=== PATIENT | male | born 1945 | race Caucasian/White ===

== ENCOUNTER 2017-12-17 05:22 | Day surgery (SDC) | payer OTHER ==
[~2017-12-17] VITALS: Ht 182.9 cm; Wt 124.7 kg
--- NOTE | ~2017-12-17 | O ---
[facility] [place] [address] OPERATIVE REPORT Name: MARCELLO SEGURA Room #: DEP [facility]#: [id number] Admission: 12/17/17 Attend Phys: Matteo Marcano MD Discharge: 12/17/17 Date of : 47 Report #: [id number] THIS REPORT FOR: //name// CC: Trisha Patten [facility] physician/PCP Matteo Marcano DATE OF SERVICE: 12/17/2017 PREOPERATIVE DIAGNOSIS: Tumor of right lower lid and cheek. POSTOPERATIVE DIAGNOSIS: Tumor of right lower lid and cheek, basal cell carcinoma. PROCEDURE: Excision of tumor of right lower lid and cheek with frozen sections and myocutaneous flap repair of defect. SURGEON: Matteo Marcano MD SHANK TAPER: None. ANESTHESIA: MAC. COMPLICATIONS: None. INDICATIONS FOR SURGERY: This pleasant 72-year-old gentleman has a nodular ulcerative lesion in his right lower lid that appears to be a basal cell carcinoma. He presents today for excision of the lesion with frozen sections and subsequent repair of that defect. Informed consent was obtained to include, but not limited to the potential risk for loss of vision, bleeding, infection, failure to improve the problem, and the potential need for further surgery or treatment. DESCRIPTION OF PROCEDURE: The patient was taken to the operating room where 2% Xylocaine with epinephrine mixed with equal parts of 0.75% Marcaine with Wydase was administered transcutaneously to the right lower lid, the right cheek and the right sabianist. The patient was subsequently prepped and aped in the usual sterile fashion. A fine tip skin marking pen was then utilized to outline the lesion including 1-2 mm of normal appearing tissue. The incisions were then made with a #15 blade. The deeper dissection was accomplished with a Radhika scissor. The specimen was then oriented on a drawing for the waiting pathologist. The pathologist snap froze that specimen and found that the lesion was indeed a basal cell carcinoma and that the margins were clear. A myocutaneous flap was then developed. Hemostasis was then re-achieved. The [address] [address] OPERATIVE REPORT Name: MARCELLO SEGURA Room #: DEP [facility] M.R.#: [id number] Admission: 12/17/17 Attend Phys: Matteo Marcano MD Discharge: 12/17/17 Date of : 47 Report #: [id number] flap was then rotated into position and secured with multiple interrupted 6-0 plain gut sutures. Erythromycin ophthalmic ointment was placed on the incision and the patient subsequently transported to the recovery area having tolerated the procedures well with no anesthetic or operative complications being noted. <ELECTRONICALLY SIGNED> By: Matteo Marcano MD 12/28/17 0616 [id number] 1749 Matteo Marcano MD /nt
--- NOTE | ~2017-12-17 | S ---
[facility] [place] [address] SURGICAL PATH RPT PROCEDURE Name: MARCELLO SEGURA Room #: DEP [facility] M.R.#: [id number] Admission: 12/17/17 Date of : 47 Discharge: 12/17/17 Report #: [id number] Path Case #: [id number] PATHOLOGY REPORT COLLECTION DATE: 12/17/2017 RECEIVED DATE: 12/17/2017 SUBMITTING PHYS: Dr. Matteo Marcano OTHER PHYS: SPECIMEN(S) RECEIVED: A.R lower lid/cheek * * * * * * * * * * * * FINAL DIAGNOSIS: Skin, lesion right lower lid/cheek, excision: - BASAL CELL CARCINOMA. - Margins of resection free of malignancy. (IUV:mgr; 12/18/2017) PATHOLOGIST: Ruby Wilson M.D. REPORT ELECTRONICALLY SIGNED BY: Ruby Wilson M.D. DATE/TIME: 12/18/2017 13:56 * * * * * * * * * * * * GROSS PATHOLOGY: The specimen is received fresh from the OR labeled with the patient's name and "lesion right lower lid/cheek" consists of an oriented ellipse of skin measuring approximately 1.5 x 0.8 x 0.3 cm. The specimen is oriented as medial, inferior, lateral and superior. These are assigned 12:00, 3:00, 6:00 and 9:00, respectively. The 12 to 3 to 6:00 is inked black including the deep margin, the 6 to 9:00 is inked blue (lateral to superior), and the 9 to 12:00 is inked green (superior to medial). At this point the specimen is serially sectioned into five pieces and submitted for frozen section entirely as FSA1, subsequently submitted for permanent sections as A1. FROZEN SECTION DIAGNOSIS: (Javy Wilson M.D.) FSA1. Skin, lesion right lower lid, excision: - BASAL CELL CARCINOMA. - MARGIN FREE OF INVASIVE CARCINOMA. These findings are discussed with Dr. Matteo Marcano in OR 6 at [facility] and a written report is placed in the patient's chart. (IUV:db; 12/17/2017) Testing performed by [facility] at [address] [address] SURGICAL PATH RPT PROCEDURE Name: IMELDAMARCELLO Mario [facility] [id number] Admission: 12/17/17 Date of : 47 Discharge: 12/17/17 Report #: [id number] Path Case #: [id number] [facility] [place] [address], [place] [address] CLINICAL HISTORY: History of excision of a lesion of the eye. INITIAL CPT CODE(S): A; 14399, 65907 Professional services performed by [facility] at [place] [address] [address] [place], [place] [address] Technical services performed by [facility] at [address] [place] [address]., [address], [place] [address]. [facility] [address] [address] PHONE: [phone] DIRECTOR: Andrew Alanis M.D. * * * END OF REPORT * * *
[~2017-12-17 05:22] MED LIST: ASPIRIN325 PO; CARDURA4 MG PO; CENTRUM SILVER1 EAC2 PO; FISH OIL 1,001000 M2 PO; HYDROCHLOROTHIA25 M2 PO; PRINIVIL40 MG PO; SIMVASTATIN40 MG PO
[2017-12-17 15:02] LABS: CALCIUM 9.5 mg/dL (8.5-10.1); CREATININE 1.6 mg/dL (0.7-1.3); POTASSIUM 3.7 mmol/L (3.5-5.1)
[2017-12-17 15:11] VITALS: BP 136/64
== END 2017-12-17 16:30 | disposition home or self-care (01) ==
LOC: TBA 05:22 → OR 05:22 → TBA 05:23 → OR 07:19
PROVIDERS: Ophthalmology
DX: C44.112 Basal cell carcinoma of skin of right eyelid, including canthus (principal); I10 Essential (primary) hypertension; E78.00 Pure hypercholesterolemia, unspecified; Z87.891 Personal history of nicotine dependence; Z98.890 Other specified postprocedural states; Z88.0 Allergy status to penicillin; Z79.899 Other long term (current) drug therapy
CPT/HCPCS: 50010; 50101; 50398; 51636; 56531; 62110; 62850; 70005